=== PATIENT | female | born 1985 | race Caucasian/White ===

== ENCOUNTER 2017-03-22 04:42 | Inpatient (IN) | payer BC ==
[2017-03-22] MEDS ORDERED: Carboprost Tromethamine 250 MCG/1 ML Amp IM PRN (05:17)
[2017-03-22] MEDS ORDERED: Water For Irrigation,Sterile 1,000 ML Container IRR PRN (05:17)
[2017-03-22] MEDS ORDERED: Sodium Chloride 0.9% 2.5 ML Syringe FLUSH PRN (05:17)
[2017-03-22] MEDS ORDERED: Butorphanol 1 MG/ML SDV IVPUSH PRN (05:17)
[2017-03-22] MEDS ORDERED: Sodium Chloride 0.9% 10 ML Syringe FLUSH PRN (05:17)
[2017-03-22] MEDS ORDERED: Methylergonovine 0.2 MG/1 ML Amp IM PRN ×2 (05:17→08:31)
[2017-03-22] MEDS ORDERED: Nalbuphine 10 MG/1 ML Vial IVPUSH PRN (05:17)
[2017-03-22] MEDS ORDERED: Misoprostol 200 MCG Tab PO PRN (05:17)
[2017-03-22] MEDS ORDERED: Lidocaine 1% 50 ML MDV INJECT PRN (05:17)
[2017-03-22] MEDS ORDERED: Oxytocin/Lactated Ringers 30 UNIT/500 ML BAG IV SCH (05:30)
[2017-03-22] MEDS ORDERED: Ampicillin 2 GM in Sodium Chloride 0.9% 100 ML IV ONE (05:30)
[2017-03-22] MEDS: Lactated Ringers 1,000 ML IV SCH ×2 (05:55→06:14)
[2017-03-22] MEDS ORDERED: fentaNYL 100 MCG/2 ML SDV ONE (06:04)
[2017-03-22] MEDS ORDERED: Ropivacaine HCl/PF 100 ML ONE (06:04)
--- NOTE | 2017-03-22 06:09 | PCM.PREANE ---
Preanesthetic Assessment - Anesthesia/Transfusion/Family Hx Anesthesia History: Prior Anesthesia Without Reaction - Review of Systems General: No Symptoms Pulmonary: No Symptoms Cardiovascular: No Symptoms Gastrointestinal: No symptoms Neurological: No Symptoms Other: Reports: None - Physical Assessment Pulse: 70 O2 Sat by Pulse Oximetry: 99 Respiratory Rate: 20 Blood Pressure: 128/71 Height: 5 ft 6.5 in Weight: 83.642 kg ASA Class: 2 Mental Status: Alert & Oriented x3 Airway Class: Mallampati = 2 Dentition: Reports: Normal Dentition Thyro-Mental Finger Breadths: 3 Mouth Opening Finger Breadths: 3 ROM/Head Extension: Full Lungs: Clear to auscultation, Normal respiratory effort Cardiovascular: Regular Rate, Regular Rhythm - Allergies Allergies/Adverse Reactions: Allergies Allergy/AdvReac Type Severity Reaction Status Date / Time No Known Allergies Allergy Verified 03/20/15 00:13 - Acknowledgements Anesthesia Type Planned: Epidural Pt an Appropriate Candidate for the Planned Anesthesia: Yes Alternatives and Risks of Anesthesia Discussed w Pt/Guardian: Yes Pt/Guardian Understands and Agrees with Anesthesia Plan: Yes PreAnesthesia Questionnaire HEENT History: Reports: None Cardiovascular History: Reports: None Respiratory History: Reports: None Gastrointestinal History: Reports: GERD, Other (see below) (N/V) Genitourinary History: Reports: None 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 LMP (Approximate): Musculoskeletal History: Reports: None Neurological History: Reports: None Psychiatric History: Reports: None Endocrine/Metabolic History: Reports: None Hematologic History: Reports: None Immunologic History: Reports: None Oncologic (Cancer) History: Reports: None Dermatologic History: Reports: None - Infectious Disease History Infectious Disease History: Reports: None - Past Surgical History HEENT Surgical History: Reports: Other (see below) ([place] teeth extraction) Female Surgical History: Reports: Other (see below) (Previous vaginal delivery) - HOME MEDS Home Medications: Home Meds Docusate Sodium [Colace] 100 mg PO BID #60 cap 03/22/15 [Rx] - CURRENT (IN HOUSE) MEDS Current Meds: Current Medications Butorphanol Tartrate (Stadol) 1 mg IVPUSH Q1H PRN PRN Reason: Pain Stop: 03/23/17 05:18 Last Admin: 03/22/17 05:54 Dose: 1 mg Carboprost Tromethamine (Hemabate Ds) 250 mcg IM ASDIRECTED PRN PRN Reason: Post Hemorrhage Ampicillin Sodium 1 gm/ Sodium (Chloride) 50 mls @ 100 mls/hr IV Q4H [facility] Lactated Ringer's (Ringers, Lactated) 1,000 mls @ 150 mls/hr IV ASDIRECTED [facility] Last Admin: 03/22/17 05:55 Dose: 150 mls/hr Lidocaine HCl (Xylocaine 1%) 50 ml INJECT .ONCE PRN PRN Reason: Laceration repair Methylergonovine Maleate (Methergine) 0.2 mg IM ASDIRECTED PRN PRN Reason: Post Hemorrhage Misoprostol (Cytotec) 200 mcg PO .ONCE PRN PRN Reason: Post Hemorrhage Nalbuphine HCl (Nubain) 10 mg IVPUSH Q1H PRN PRN Reason: Pain (severe 7-10) Stop: 03/22/17 07:18 Sodium Chloride (Saline Flush) 10 ml FLUSH ASDIRECTED PRN PRN Reason: Keep Vein Open Last Admin: 03/22/17 05:56 Dose: 10 ml Sodium Chloride (Saline Flush) 2.5 ml FLUSH ASDIRECTED PRN PRN Reason: Keep Vein Open Last Admin: 03/22/17 05:56 Dose: 2.5 ml Sterile Water (Sterile Water For Irrigation) 1,000 ml IRR ASDIRECTED PRN PRN Reason: delivery Discontinued Medications Ampicillin Sodium 2 gm/ Sodium (Chloride) 100 mls @ 200 mls/hr IV ONETIME ONE Stop: 03/22/17 05:59 Last Admin: 03/22/17 05:54 Dose: 200 mls/hr Oxytocin/Lactated Ringer's (Pitocin In Lr 30 Units/500 Ml) 30 unit in 500 mls @ 999 mls/hr IV ASDIRECTED [facility] PRN Reason: 999 MUNITS/MIN Stop: 03/22/17 06:01
[2017-03-22] MEDS ORDERED: Bisacodyl 10 MG Supp RECTAL PRN (08:31)
[2017-03-22] MEDS ORDERED: Lanolin 100% Cream 7 GM Tube TOP PRN (08:31)
[2017-03-22] MEDS ORDERED: Witch Hazel Medicated Pads 40/Jar TOP PRN (08:31)
[2017-03-22] MEDS ORDERED: Benzocaine/Menthol 20%-0.5% Spray 78 GM Cannister TOP PRN (08:31)
[2017-03-22] MEDS ORDERED: oxyCODONE 5 MG Tab PO PRN (08:31)
[2017-03-22] MEDS ORDERED: Docusate Sodium 100 MG Cap PO PRN (08:31)
[2017-03-22] MEDS ORDERED: Acetaminophen 500 MG Tab PO PRN (08:31)
[2017-03-22] MEDS ORDERED: Ampicillin 1 GM in Sodium Chloride 0.9% 50 ML IV SCH (09:30)
--- NOTE | 2017-03-22 12:58 | OR ---
SURGEON: Wendy Sher M.D. DATE OF PROCEDURE: 03/22/2017 PREOPERATIVE DIAGNOSIS: 39 and 4/7th week intrauterine , group B strep positive, active spontaneous labor. POSTOPERATIVE DIAGNOSIS: 39 and 4/7th week intrauterine , group B strep positive, active spontaneous labor. PROCEDURE: Term spontaneous vaginal delivery with repair of second-degree laceration. ANESTHESIA: Epidural. ESTIMATED BLOOD LOSS: Less than 300 mL. FINDINGS: Live born male, score 9 and 9, weighing 3290 g. Placenta delivered spontaneously. Schultze intact with 3 vessels. A second-degree perineal laceration was repaired. COMPLICATIONS: None known. DISPOSITION: Mother and in [facility] in good condition. BRIEF HISTORY: This is a 31-year-old female. She is G2, P1, 0-0-1. She presents at 39 and 4/7th weeks gestation in active spontaneous labor. Initially 5-6 cm dilated, she was admitted to Labor and Delivery. She was known to be group B strep positive, therefore ampicillin was initiated. She requested epidural, therefore labs were drawn and she did receive an epidural, and she continued to progress to complete. DESCRIPTION OF PROCEDURE: The patient in dorsal lithotomy position, the patient pushed over 45-minute time period to a 5+ station, at which time the head was delivered spontaneously and atraumatically over the perineum with support with subsequent delivery of the infant's shoulders and body without any difficulty. The was bulb suctioned by nose and mouth, and the infant was handed to the mother in the presence of the nurse in attendance at delivery. The was a liveborn male, score 9 and 9, weighing 3290 g. After the cord had ceased to pulsate, it was doubly clamped and cut. Cord blood was collected for cord ABGs as well as routine cord blood sampling. Pitocin was initiated after delivery of the to assist with delivery of the placenta, which was delivered spontaneously with Schultze intact with 3 vessels. Upon inspection of the pelvis and perineum, there were no periurethral, vaginal sidewall, cervical, or rectal lacerations. There was a second-degree perineal laceration that was repaired using a running locked suture of 3-0 Caprosyn for the vaginal mucosa, a deep running suture of the same for the perineum, and a subcuticular suture of the skin utilizing the same suture. Final sponge, needle, and instrument counts were correct. There were no known complications. [place] and mother are in [facility] in good condition. CAROLYN / EDUARDO /[id number]
[2017-03-22] MEDS: Ibuprofen 800 MG Tab PO PRN (15:41)
--- NOTE | 2017-03-22 22:21 | PCM48HPAN ---
Post Anesthesia Note - EVALUATION WITHIN 48HRS OF ANESTHETIC Vital Signs in Normal Range: Yes Patient Participated in Evaluation: Yes Respiratory Function Stable: Yes Airway Patent: Yes Cardiovascular Function Stable: Yes Hydration Status Stable: Yes Pain Control Satisfactory: Yes Nausea and Vomiting Control Satisfactory: Yes Mental Status Recovered: Yes
[2017-03-23] MEDS: Ibuprofen 800 MG Tab PO PRN (09:09)
--- NOTE | 2017-03-23 09:36 | PCM.PNPP ---
- General Info Date of Service: 03/23/17 Functional Status: Reports: pain controlled, tolerating diet, ambulating, urinating - Review of Systems General: Reports: No Symptoms HEENT: Reports: no symptoms Pulmonary: Reports: no symptoms Cardiovascular: Reports: No Symptoms Gastrointestinal: Reports: No symptoms Genitourinary: Reports: no symptoms Musculoskeletal: Reports: no symptoms Skin: Reports: no symptoms Neurological: Reports: No Symptoms Psychiatric: Reports: no symptoms - Patient Data Vital Signs - most recent: Last Vital Signs Temp 36.4 C 03/23/17 07:48 Pulse 57 L 03/23/17 07:48 Resp 16 03/23/17 07:48 BP 128/86 03/23/17 07:48 Pulse Ox 97 03/23/17 07:48 Weight - most recent: 83.642 kg Lab Results - last 24 hrs: Laboratory Results - last 24 hr 03/23/17 Range/Units 06:10 Hgb 11.4 L (12.0-16.0) g/dL Hct 34.1 L (36.0-46.0) % Med Orders - Current: Current Medications Acetaminophen (Tylenol Extra Strength) 1,000 mg PO Q4H PRN PRN Reason: Pain Benzocaine/Menthol (Dermoplast Pain Relief 20%-0.5% [place]) 78 gm TOP ASDIRECTED PRN PRN Reason: Perineal Comfort Measure Bisacodyl (Dulcolax) 10 mg RECTAL .ONCE PRN PRN Reason: Constipation Docusate Sodium (Colace) 100 mg PO BID PRN PRN Reason: Constipation Emollient Ointment (Lansinoh Hpa) 0 gm TOP ASDIRECTED PRN PRN Reason: Sore Nipples Ibuprofen (Motrin) 800 mg PO Q6H PRN PRN Reason: Pain Last Admin: 03/23/17 09:09 Dose: 800 mg Methylergonovine Maleate (Methergine) 0.2 mg IM .ONCE PRN PRN Reason: Excessive Vaginal Bleeding Oxycodone HCl (Oxycodone) 5 mg PO Q2H PRN PRN Reason: Pain Witch Mireille (Tucks) 1 pad TOP ASDIRECTED PRN PRN Reason: comfort care Discontinued Medications Butorphanol Tartrate (Stadol) 1 mg IVPUSH Q1H PRN PRN Reason: Pain Stop: 03/23/17 05:18 Last Admin: 03/22/17 05:54 Dose: 1 mg Carboprost Tromethamine (Hemabate Ds) 250 mcg IM ASDIRECTED PRN PRN Reason: Post Hemorrhage Fentanyl (Sublimaze) Confirm Administered Dose 100 mcg .ROUTE .[facility]-MED ONE Stop: 03/22/17 06:05 Ampicillin Sodium 2 gm/ Sodium (Chloride) 100 mls @ 200 mls/hr IV ONETIME ONE Stop: 03/22/17 05:59 Last Admin: 03/22/17 05:54 Dose: 200 mls/hr Ampicillin Sodium 1 gm/ Sodium (Chloride) 50 mls @ 100 mls/hr IV Q4H [facility] Lactated Ringer's (Ringers, Lactated) 1,000 mls @ 150 mls/hr IV ASDIRECTED [facility] Last Admin: 03/22/17 06:14 Dose: 150 mls/hr Oxytocin/Lactated Ringer's (Pitocin In Lr 30 Units/500 Ml) 30 unit in 500 mls @ 999 mls/hr IV ASDIRECTED [facility] PRN Reason: 999 MUNITS/MIN Stop: 03/22/17 06:01 Last Admin: 03/22/17 08:26 Dose: 999 munits/min, 999 mls/hr Ropivacaine (Naropin 0.2%) Confirm Administered Dose 100 mls @ as directed .ROUTE .[facility] ONE Stop: 03/22/17 06:05 Lidocaine HCl (Xylocaine 1%) 50 ml INJECT .ONCE PRN PRN Reason: Laceration repair Methylergonovine Maleate (Methergine) 0.2 mg IM ASDIRECTED PRN PRN Reason: Post Hemorrhage Misoprostol (Cytotec) 200 mcg PO .ONCE PRN PRN Reason: Post Hemorrhage Nalbuphine HCl (Nubain) 10 mg IVPUSH Q1H PRN PRN Reason: Pain (severe 7-10) Stop: 03/22/17 07:18 Sodium Chloride (Saline Flush) 10 ml FLUSH ASDIRECTED PRN PRN Reason: Keep Vein Open Last Admin: 03/22/17 05:56 Dose: 10 ml Sodium Chloride (Saline Flush) 2.5 ml FLUSH ASDIRECTED PRN PRN Reason: Keep Vein Open Last Admin: 04/29/17 05:56 Dose: 2.5 ml Sterile Water (Sterile Water For Irrigation) 1,000 ml IRR ASDIRECTED PRN PRN Reason: delivery Last Admin: 03/22/17 08:26 Dose: 1,000 ml - Infant Interaction Disposition, : to Nursery Feeding: Breastfed ; Nursed Well Support Person: - Recovery Exam Fundal Tone: Firm Fundal Level: At Umbilicus Fundal Placement: Midline Lochia Amount: Scant Lochia Color: Rubra/Red Perineum Description: Intact, Minimal Bruising/Swelling Episiotomy/Laceration: Approximated Bladder Status: Voiding Urinary Elimination: Voided - Exam General: alert, oriented HEENT: Pupils equal Neck: supple Lungs: Normal respiratory effort Abdomen: soft, no tenderness, no distension Extremities: No: no edema (trace) Skin: warm, dry, intact Neurological: no new focal deficit Psy/Mental Status: alert, normal affect, normal mood - Problem List & Annotations (1) Vaginal delivery SNOMED Code(s): 683149917 Code(s): O80 - ENCOUNTER FOR FULL-TERM UNCOMPLICATED DELIVERY Status: Acute Current Visit: Yes - Problem List Review Problem List Initiated/Reviewed/Updated: Yes - My Orders Last 24 Hours: My Active Orders 03/22/17 Lunch Regular Diet [DIET] - Assessment Assessment:: PPD#1 after , stable, minimal lochia, minimal pain, would like to be discharged today. - Plan Plan:: Discharge instructions reviewed.
[2017-03-23 11:15] VITALS: BP 128/86
== END 2017-03-23 11:45 | disposition home or self-care (01) | DRG 560 ==
LOC: MW.OB 04:42 → MW.OBCHECK 04:42 → MW.OB 05:17 → MW.OBCHECK 05:17 → OBSVTOIN 07:56
PROVIDERS: ADMIT Obstetrics & Gynecology; ATTEND Obstetrics & Gynecology
PROC: 10E0XZZ Delivery of Products of Conception, External Approach (ICD-10-PCS; principal; 2017-03-22)
PROC: 0KQM0ZZ Repair Perineum Muscle, Open Approach (ICD-10-PCS; 2017-03-22)
DX: O70.1 Second degree perineal laceration during delivery (principal); Z3A.39 39 weeks gestation of pregnancy; Z37.0 Single live birth
CPT/HCPCS: 01967; 36415; 59025; 85014; 85018; 85027; 86850; 86900; 86901; A9270-GY; J0290; J0595; J2795; J3010; J7030; J7120

== ENCOUNTER 2019-12-14 19:22 | Inpatient (IN) | payer BC ==
[2019-12-14] MEDS ORDERED: Tranexamic Acid 1,000 MG in Sodium Chloride 0.9% 100 ML IV PRN (20:52)
[2019-12-14] MEDS ORDERED: Water For Irrigation,Sterile 1,000 ML Container IRR PRN (20:52)
[2019-12-14] MEDS ORDERED: Carboprost Tromethamine 250 MCG/1 ML Amp IM PRN (20:52)
[2019-12-14] MEDS ORDERED: Sodium Chloride 0.9% 10 ML Syringe FLUSH PRN (20:52)
[2019-12-14] MEDS ORDERED: Sodium Chloride 0.9% 10 ML SDV IV PRN (20:52)
[2019-12-14] MEDS ORDERED: Misoprostol 200 MCG Tab PO PRN (20:52)
[2019-12-14] MEDS ORDERED: Butorphanol 1 MG/ML SDV IVPUSH PRN (20:52)
[2019-12-14] MEDS ORDERED: Nalbuphine 10 MG/1 ML Vial IVPUSH PRN (20:52)
[2019-12-14] MEDS ORDERED: Sodium Chloride 0.9% 2.5 ML Syringe FLUSH PRN (20:52)
[2019-12-14] MEDS ORDERED: Methylergonovine 0.2 MG/1 ML Amp IM PRN (20:52)
[2019-12-14] MEDS ORDERED: Lidocaine 1% 50 ML MDV INJECT PRN (20:52)
[2019-12-14] MEDS ORDERED: Ondansetron 4 MG/2 ML SDV IVPUSH PRN (20:52)
[2019-12-14] MEDS ORDERED: Lactated Ringers 1,000 ML IV SCH (21:00)
[2019-12-14] MEDS ORDERED: Oxytocin/0.9 % Sodium Chloride 30 UNIT/500 ML BAG IV SCH (21:00)
[2019-12-14] MEDS ORDERED: Ampicillin 2 GM in Sodium Chloride 0.9% 100 ML IV ONE (21:00)
[2019-12-14] MEDS ORDERED: Ropivacaine 0.2% 2 MG/ML 20 ML SDV ONE (22:22)
[2019-12-14] MEDS ORDERED: Ropivacaine HCl/PF 100 ML ONE (22:22)
[2019-12-14] MEDS ORDERED: fentaNYL 100 MCG/2 ML SDV ONE (22:22)
[2019-12-14] MEDS ORDERED: ePHEDrine 50 MG/ML SDV ONE (22:47)
--- NOTE | 2019-12-14 23:17 | PCM.PREANE ---
Preanesthetic Assessment - Procedure Proposed Procedure: Labor Epidural. . Active labor. Induction. Pain9/10 - Anesthesia/Transfusion/Family Hx Anesthesia History: Prior Anesthesia Without Reaction Family History of Anesthesia Reaction: No Transfusion History: No Prior Transfusion(s) Intubation History: Intubation other than for Surgery in past Additional History: Hx Scoliosis - Review of Systems General: No Symptoms Pulmonary: No Symptoms Cardiovascular: No Symptoms Gastrointestinal: No Symptoms Neurological: No Symptoms Other: Reports: None - Physical Assessment NPO Status Date: 12/14/19 NPO Status Time: 23:17 (Liquids) ASA Class: 2 Mental Status: Alert & Oriented x3 Airway Class: Mallampati = 2 Dentition: Reports: Normal Dentition Thyro-Mental Finger Breadths: 3 Mouth Opening Finger Breadths: 3 ROM/Head Extension: Full Lungs: Clear to Auscultation Cardiovascular: Regular Rate - Lab Values: Laboratory Last Values WBC 11.54 K/uL (4.0-11.0) H 12/14/19 21:14 RBC 4.31 M/uL (4.30-5.90) 12/14/19 21:14 Hgb 13.4 g/dL (12.0-16.0) 12/14/19 21:14 Hct 38.7 % (36.0-46.0) 12/14/19 21:14 MCV 89.8 fL (80.0-98.0) 12/14/19 21:14 MCH 31.1 pg (27.0-32.0) 12/14/19 21:14 MCHC 34.6 g/dL (31.0-37.0) 12/14/19 21:14 RDW Std Deviation 45.2 fl (28.0-62.0) 12/14/19 21:14 RDW Coeff of Minda 14 % (11.0-15.0) 12/14/19 21:14 Plt Count 166 K/uL (150-400) 12/14/19 21:14 MPV 11.80 fL (7.40-12.00) 12/14/19 21:14 Nucleated RBC % 0.0 /100WBC 12/14/19 21:14 Nucleated RBCs # 0 K/uL 12/14/19 21:14 - Allergies Allergies/Adverse Reactions: Allergies Allergy/AdvReac Type Severity Reaction Status Date / Time No Known Allergies Allergy Verified 03/20/15 00:13 - Blood Blood Available: No Product(s) Available: None - Anesthesia Plan Pre-Op Medication Ordered: None - Acknowledgements Anesthesia Type Planned: Epidural Pt an Appropriate Candidate for the Planned Anesthesia: Yes Alternatives and Risks of Anesthesia Discussed w Pt/Guardian: Yes Pt/Guardian Understands and Agrees with Anesthesia Plan: Yes Additional Comments: Discussed. ? answered. Acceptable candidate. Permit signed. 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 History: Reports: None Neurological History: Reports: None Psychiatric History: Reports: None Endocrine/Metabolic History: Reports: None Hematologic History: Reports: None Immunologic History: Reports: None Oncologic (Cancer) History: Reports: None Dermatologic History: Reports: None - Infectious Disease History Infectious Disease History: Reports: None - Past Surgical History HEENT Surgical History: Reports: Other (See Below) Female Surgical History: Reports: Other (See Below) - HOME MEDS Home Medications: Home Meds Docusate Sodium [Colace] 100 mg PO BID #60 cap 03/22/15 [Rx] Ibuprofen [IJD: Ibuprofen] 800 mg PO Q6H PRN #30 tablet 03/22/17 [Rx] - CURRENT (IN HOUSE) MEDS Current Meds: Current Medications Butorphanol Tartrate (Stadol) 1 mg IVPUSH Q1H PRN PRN Reason: Pain Carboprost Tromethamine (Hemabate Ds) 250 mcg IM ASDIRECTED PRN PRN Reason: Post Hemorrhage Tranexamic Acid 1,000 mg/ (Sodium Chloride) 110 mls @ 660 mls/hr IV ONETIME PRN PRN Reason: Bleeding Lactated Ringer's (Ringers, Lactated) 1,000 mls @ 150 mls/hr IV ASDIRECTED [facility] Last Admin: 12/14/19 21:26 Dose: 150 mls/hr Oxytocin/Sodium Chloride (Oxytocin 30 Unit/500 Ml-Ns) 30 unit in 500 mls @ 999 mls/hr IV TITRATE [facility] Ampicillin Sodium 1 gm/ Sodium (Chloride) 50 mls @ 100 mls/hr IV Q4H [facility] Lidocaine HCl (Xylocaine 1%) 50 ml INJECT ONETIME PRN PRN Reason: Laceration repair Methylergonovine Maleate (Methergine) 0.2 mg IM ASDIRECTED PRN PRN Reason: Post Hemorrhage Misoprostol (Cytotec) 200 mcg PO ONETIME PRN PRN Reason: Post Hemorrhage Nalbuphine HCl (Nubain) 10 mg IVPUSH Q1H PRN PRN Reason: Pain (severe 7-10) Ondansetron HCl (Zofran) 4 mg IVPUSH Q6H PRN PRN Reason: Nausea/Vomiting Sodium Chloride (Saline Flush) 10 ml FLUSH ASDIRECTED PRN PRN Reason: Keep Vein Open Sodium Chloride (Saline Flush) 2.5 ml FLUSH ASDIRECTED PRN PRN Reason: Keep Vein Open Sodium Chloride (Normal Saline) 10 ml IV ASDIRECTED PRN PRN Reason: IV Use Sterile Water (Sterile Water For Irrigation) 1,000 ml IRR ASDIRECTED PRN PRN Reason: delivery Discontinued Medications Ephedrine Sulfate (Ephedrine Sulfate) Confirm Administered Dose 50 mg .ROUTE .[facility] ONE Stop: 12/14/19 22:48 Fentanyl (Sublimaze) Confirm Administered Dose 100 mcg .ROUTE .[facility] ONE Stop: 12/14/19 22:23 Ampicillin Sodium 2 gm/ Sodium (Chloride) 100 mls @ 200 mls/hr IV ONETIME ONE Stop: 12/14/19 21:29 Last Admin: 12/14/19 21:26 Dose: 200 mls/hr Ropivacaine (Naropin 0.2%) Confirm Administered Dose 100 mls @ as directed .ROUTE .[facility] ONE Stop: 12/14/19 22:23 Ropivacaine (Naropin 0.2%) Confirm Administered Dose 20 ml .ROUTE .[facility] ONE Stop: 12/14/19 22:23
--- NOTE | 2019-12-14 23:40 | PCM.PRNOTE ---
- Free Text/Narrative Note: Requested for KAYLI. Discussed. ? answered. Permit signed. , active labor. Dilated ~6cm. Pain 9/10. On pitocin. Fluid bolus in progress. 22:28: Prep with Chloroprep 22:31: Skin local with 4ml 1% lido @ L3-4 22:34 Epidural space ID'd via HARSH with saline/air mixture. Reconfirmed with 3ml saline. 23:35 Catheter to 8cm without issues. 22:36 Test with 3ml 1.5% lido with1:200K epi added. TEST NEGATIVE 22:41-47 Bolus given 8ml 0.2% Naropin + 100mcg Fentanyl added. 22:49 Nausea BP 82/56 Ephidrine 10 mg IV 22:51 BP 91/57 Ephidrine 5mg 22:53 Ephidrine 5mg 22:55 BP 128/76 Nausea subsided. 22:58 pump on @ 8ml/hr. 23:00 pain 3/10 23:10 pain 1/10 Tolerated well. No problems noted. Resting quietly.
[2019-12-15] MEDS ORDERED: Ampicillin 1 GM in Sodium Chloride 0.9% 50 ML IV SCH (01:00)
[2019-12-15] MEDS ORDERED: Witch Hazel Medicated Pads 40/Jar TOP PRN (03:32)
[2019-12-15] MEDS ORDERED: Aluminum Hydroxide/Magnesium Hydroxide/Simethicone Susp 30 ML Cup PO PRN (03:32)
[2019-12-15] MEDS ORDERED: Benzocaine/Menthol 20%-0.5% Spray 78 GM Cannister TOP PRN (03:32)
[2019-12-15] MEDS ORDERED: Lanolin 100% Cream 7 GM Tube TOP PRN (03:32)
[2019-12-15] MEDS ORDERED: Ibuprofen 400 MG Tab PO PRN (03:32)
[2019-12-15] MEDS ORDERED: oxyCODONE 5 MG Tab PO PRN (03:32)
[2019-12-15] MEDS ORDERED: Bisacodyl 10 MG Supp RECTAL PRN (03:32)
[2019-12-15] MEDS ORDERED: Docusate Sodium 100 MG Cap PO PRN (03:32)
[2019-12-15] MEDS ORDERED: Acetaminophen 500 MG Tab PO PRN ×2 (03:32)
[2019-12-15] MEDS ORDERED: Ibuprofen 800 MG Tab PO PRN (03:32)
--- NOTE | 2019-12-15 03:39 | PCM.OPNOTE ---
- General Post-Op/Procedure Note Date of Surgery/Procedure: 12/15/19 Operative Procedure(s): /1st MLL repaired Findings: Viable male APGARs 8,9 weight pending. Spontaneous delivery intact placenta with 3V cord Pre Op Diagnosis: 40/4 week IUP. Labor Post-Op Diagnosis: Same Anesthesia Technique: Epidural Primary Surgeon: Keke Daniel EBL in mLs: 200 Complications: none known Condition: Stable Free Text/Narrative:: Dictation [id number]
--- NOTE | 2019-12-15 04:13 | OR ---
SURGEON: Keke Daniel M.D. DATE OF PROCEDURE: 12/15/2019 PREOPERATIVE DIAGNOSES: 1. A 40 and 4/7 weeks' intrauterine . 2. Active labor. POSTOPERATIVE DIAGNOSES: 1. A 40 and 4/7 weeks' intrauterine . 2. Active labor. PROCEDURE: Spontaneous vaginal delivery, first-degree midline laceration repaired. PRIMARY SURGEON: Keke Daniel M.D. ANESTHESIA: Epidural. ESTIMATED BLOOD LOSS: 200 mL. COMPLICATIONS: None known. FINDINGS: Viable male, score 8 at one minute and 9 at five minutes. Weight is pending. Spontaneous delivery. Intact placenta with a 3-vessel cord. DISPOSITION: to nursery, mom in LDRP. PROCEDURE DETAILS: Annamaria is a 34-year-old G3, P2 at 40 and 3/7 weeks' gestational age, who presents on the evening of 12/14/2019 with regular contractions. On initial examination, she was found to be 4 to 5 cm and with next evaluation had progressed to 7 cm. Therefore, she was admitted. Routine labs were drawn. IV hydration was initiated. She is group B beta strep positive; therefore, was initiated on ampicillin prophylaxis. Category 1 heart tones. The patient underwent regional anesthesia in the form of epidural, became more comfortable, continued to progress with spontaneous rupture of membranes, clear fluid noted, and shortly before 3 a.m., I was called for delivery. Upon my arrival, patient was placed in modified dorsal lithotomy position, was prepped and draped in usual aseptic manner. With the next contraction, was able to push and deliver infant's head atraumatically spontaneously, followed by anterior shoulder, posterior shoulder, and remainder of the body without difficulty. The 's oropharynx and nares bulb suctioned. Infant was handed off to his mother with attending nursing staff at the side. After a delay, the cord was clamped x2 and cut. Cord blood sampling was obtained. Light pressure was applied while the placenta was delivered spontaneously intact. Vigorous fundal uterine massage was then applied while 30 units of Pitocin was delivered in 500 mL of IV fluid. Upon inspection of cervix, vaginal sidewall and perineum, these were found to be intact with a first-degree midline laceration that was repaired using 3-0 Vicryl in the usual fashion. Uterus remained firm. Sponge and instrument count were correct. The patient remained in LDRP, to nursery. MIKE / EDUARDO /[id number]
--- NOTE | 2019-12-16 08:17 | PCM.PNPP ---
- General Info Date of Service: 12/16/19 Functional Status: Reports: Pain Controlled, Tolerating Diet, Ambulating, Urinating - Review of Systems General: Reports: No Symptoms HEENT: Reports: No Symptoms Pulmonary: Reports: No Symptoms Cardiovascular: Reports: No Symptoms Gastrointestinal: Reports: No Symptoms Genitourinary: Reports: No Symptoms Musculoskeletal: Reports: No Symptoms Skin: Reports: No Symptoms Neurological: Reports: No Symptoms Psychiatric: Reports: No Symptoms - General Info Date of Service: 12/16/19 - Patient Data Vital Signs - Most Recent: Last Vital Signs Temp 36.4 C 12/16/19 04:40 Pulse 69 12/16/19 04:40 Resp 17 12/16/19 04:40 BP 110/66 12/16/19 04:40 Pulse Ox 96 12/16/19 04:40 Lab Results - Last 24 Hours: Laboratory Results - last 24 hr 12/15/19 Range/Units 15:02 Hgb 12.0 (12.0-16.0) g/dL Hct 34.4 L (36.0-46.0) % Med Orders - Current: Current Medications Acetaminophen (Tylenol Extra Strength) 500 mg PO Q4H PRN PRN Reason: Pain Acetaminophen (Tylenol Extra Strength) 1,000 mg PO Q4H PRN PRN Reason: Pain Last Admin: 12/15/19 08:25 Dose: 1,000 mg Al Hydroxide/Mg Hydroxide (Mag-Al Plus) 30 ml PO Q8H PRN PRN Reason: Heartburn Benzocaine/Menthol (Dermoplast Pain Relief 20%-0.5% [place]) 78 gm TOP ASDIRECTED PRN PRN Reason: Perineal Comfort Measure Last Admin: 12/15/19 08:24 Dose: 78 gm Bisacodyl (Dulcolax) 10 mg RECTAL ONETIME PRN PRN Reason: Constipation Carboprost Tromethamine (Hemabate Ds) 250 mcg IM ASDIRECTED PRN PRN Reason: Post Hemorrhage Docusate Sodium (Colace) 100 mg PO BID PRN PRN Reason: Constipation Emollient Ointment (Lansinoh Hpa) 0 gm TOP ASDIRECTED PRN PRN Reason: Sore Nipples Tranexamic Acid 1,000 mg/ (Sodium Chloride) 110 mls @ 660 mls/hr IV ONETIME PRN PRN Reason: Bleeding Lactated Ringer's (Ringers, Lactated) 1,000 mls @ 150 mls/hr IV ASDIRECTED CUAUHTEMOC Last Admin: 12/14/19 21:26 Dose: 150 mls/hr Oxytocin/Sodium Chloride (Oxytocin 30 Unit/500 Ml-Ns) 30 unit in 500 mls @ 999 mls/hr IV TITRATE CUAUHTEMOC Ibuprofen (Motrin) 400 mg PO Q4H PRN PRN Reason: Pain Ibuprofen (Motrin) 800 mg PO Q6H PRN PRN Reason: Pain Methylergonovine Maleate (Methergine) 0.2 mg IM ASDIRECTED PRN PRN Reason: Post Hemorrhage Ondansetron HCl (Zofran) 4 mg IVPUSH Q6H PRN PRN Reason: Nausea/Vomiting Oxycodone HCl (Oxycodone) 5 mg PO Q2H PRN PRN Reason: Pain Sodium Chloride (Saline Flush) 10 ml FLUSH ASDIRECTED PRN PRN Reason: Keep Vein Open Sodium Chloride (Saline Flush) 2.5 ml FLUSH ASDIRECTED PRN PRN Reason: Keep Vein Open Sodium Chloride (Normal Saline) 10 ml IV ASDIRECTED PRN PRN Reason: IV Use Sterile Water (Sterile Water For Irrigation) 1,000 ml IRR ASDIRECTED PRN PRN Reason: delivery Witch Mireille (Tucks) 1 pad TOP ASDIRECTED PRN PRN Reason: comfort care Last Admin: 12/15/19 08:23 Dose: 1 pad Discontinued Medications Butorphanol Tartrate (Stadol) 1 mg IVPUSH Q1H PRN PRN Reason: Pain Ephedrine Sulfate (Ephedrine Sulfate) Confirm Administered Dose 50 mg .ROUTE .STK-MED ONE Stop: 12/14/19 22:48 Fentanyl (Sublimaze) Confirm Administered Dose 100 mcg .ROUTE .STK-MED ONE Stop: 12/14/19 22:23 Ampicillin Sodium 2 gm/ Sodium (Chloride) 100 mls @ 200 mls/hr IV ONETIME ONE Stop: 12/14/19 21:29 Last Admin: 12/14/19 21:26 Dose: 200 mls/hr Ampicillin Sodium 1 gm/ Sodium (Chloride) 50 mls @ 100 mls/hr IV Q4H [facility] Last Admin: 12/15/19 00:42 Dose: 100 mls/hr Ropivacaine (Naropin 0.2%) Confirm Administered Dose 100 mls @ as directed .ROUTE .[facility] ONE Stop: 12/14/19 22:23 Lidocaine HCl (Xylocaine 1%) 50 ml INJECT ONETIME PRN PRN Reason: Laceration repair Misoprostol (Cytotec) 200 mcg PO ONETIME PRN PRN Reason: Post Hemorrhage Nalbuphine HCl (Nubain) 10 mg IVPUSH Q1H PRN PRN Reason: Pain (severe 7-10) Ropivacaine (Naropin 0.2%) Confirm Administered Dose 20 ml .ROUTE .[facility] ONE Stop: 12/14/19 22:23 - Infant Interaction Disposition, : [place] in Room with Family Interaction: Holding Infant Feeding: Breastfed Infant; Nursed Well Support Person: - Recovery Exam Fundal Tone: Firm Fundal Level: At Umbilicus Fundal Placement: Midline Lochia Amount: Small Lochia Color: Rubra/Red Perineum Description: Edematous Episiotomy/Laceration: Approximated Bladder Status: Nonpalpable Urinary Elimination: Voided - Exam General: Alert, Oriented HEENT: Pupils Equal Neck: Supple Lungs: Normal Respiratory Effort GI/Abdominal Exam: Soft, Non-Tender, No Organomegaly, No Distention, No Mass Extremities: Normal Inspection, Non-Tender, No Pedal Edema Skin: Warm, Dry, Intact Neurological: No New Focal Deficit Psy/Mental Status: Alert, Normal Affect, Normal Mood - Problem List & Annotations (1) Vaginal delivery SNOMED Code(s): 280047756 Code(s): O80 - ENCOUNTER FOR FULL-TERM UNCOMPLICATED DELIVERY Status: Acute Current Visit: No - Problem List Review Problem List Initiated/Reviewed/Updated: Yes - My Orders Last 24 Hours: My Active Orders 12/16/19 08:09 Ready for Discharge [RC] PER UNIT ROUTINE - Assessment Assessment:: PPD#1 after , stable, minimal lochia, well. Would like to go home today - Plan Plan:: Discharge instructions reviewed.
[2019-12-16 11:21] VITALS: BP 113/72; PULSE 63
== END 2019-12-16 12:45 | disposition home or self-care (01) | DRG 560 ==
LOC: MW.OBCHECK 19:22 → MW.OB 20:52 → OBSVTOIN 12-15 03:09 → MW.OB 12-15 10:02
PROVIDERS: ADMIT Obstetrics & Gynecology; ATTEND Obstetrics & Gynecology
PROC: 10E0XZZ Delivery of Products of Conception, External Approach (ICD-10-PCS; principal; 2019-12-15)
PROC: 0HQ9XZZ Repair Perineum Skin, External Approach (ICD-10-PCS; 2019-12-15)
PROC: 3E0R3BZ Introduction of Anesthetic Agent into Spinal Canal, Percutaneous Approach (ICD-10-PCS; 2019-12-15)
PROC: 00HU33Z Insertion of Infusion Device into Spinal Canal, Percutaneous Approach (ICD-10-PCS; 2019-12-15)
DX: O48.0 Post-term pregnancy (principal); Z3A.40 40 weeks gestation of pregnancy; O70.0 First degree perineal laceration during delivery; Z37.0 Single live birth
CPT/HCPCS: 01967; 36415; 59025; 59409; 85014; 85018; 85027; 86156; 86592; 86593; 86850; 86900; 86901; A9270-GY; J0290; J2795; J3010; J7050; J7120